=== PATIENT | male | born 1945 | race Caucasian/White ===

== ENCOUNTER 2023-08-31 13:43 | Inpatient (IN) ==
[2023-08-31] MEDS ORDERED: Ondansetron 4 mg VIAL 2 MG/ML 2 ml VIAL IV PRN (15:34)
[2023-08-31] MEDS ORDERED: Senna TAB 8.6 mg TAB PO PRN (15:34)
[2023-08-31] MEDS ORDERED: Al Hydrox/Mg Hydrox/Simet LIQ 30 ML UDC PO PRN (15:34)
[2023-08-31 19:30] LABS: Magnesium 1.7 mg/dL (1.9-2.7)
[2023-08-31 20:04] LABS: TSH Ultra Thyroid Stim Horm 2.38 mcIU/mL (0.34-5.60)
[2023-08-31] MEDS ORDERED: LORazepam 2 mg VIAL 1 ml IV PUSH PRN (21:03)
[2023-08-31] MEDS ORDERED: Lorazepam PYXIS KEY PRN (21:03)
[2023-08-31] MEDS: Heparin 5000 UNITS/ML 1 mL VIAL SUBCUT SCH (22:40)
[2023-09-01] MEDS: Heparin 5000 UNITS/ML 1 mL VIAL SUBCUT SCH ×3 (06:26→21:56)
[2023-09-01] MEDS: Latanoprost 0.005% 2.5 ml BTL LEFT EYE SCH (08:21)
[2023-09-01] MEDS ORDERED: Magnesium Sulfate 2 gm BAG 2 GM/50 ML BAG IVPB ONE (09:22)
[2023-09-01 18:39] LABS: Hematocrit 25.8 % (38-53); Hemoglobin 8.6 g/dL (13.2-16.3)
[2023-09-02] MEDS: Heparin 5000 UNITS/ML 1 mL VIAL SUBCUT SCH ×3 (05:22→21:50)
[2023-09-02 07:08] LABS: Calcium 8.7 mg/dL (8.6-10.3); Creatinine, Serum 1.85 mg/dL (0.67-1.17); Magnesium 2.1 mg/dL (1.9-2.7); Potassium 3.9 mmol/L (3.5-5.0); eGFR CKD-EPI 36.6 (>60)
[2023-09-02 07:33] LABS: Hematocrit 23.8 % (38-53); Hemoglobin 7.9 g/dL (13.2-16.3); Mean Corpuscular Hemoglobin 28.5 pg (27-33); Mean Corpuscular Hgb Conc 33.2 g/dL (31-36); Mean Corpuscular Volume 85.8 fL (80-97); Mean Platelet Volume 9.4 fL (7.5-11.2); Platelet Count 176 10^3/uL (150-450); Red Blood Count 2.78 10^6/uL (4.06-5.63); Red Cell Distribution Width 17.5 % (12-17); White Blood Count 11.9 10^3/uL (3.6-10.2)
[2023-09-02] MEDS ORDERED: Regadenoson 0.4 MG/5 ML SYRINGE ONE (07:50)
[2023-09-02] MEDS ORDERED: Aminophylline 25 MG/ML VIAL ONE (07:50)
[2023-09-02 07:57] LABS: ABS Basophils 0.1 10^3/uL (0.0-0.1); ABS Eosinophils 0.3 10^3/uL (0.0-0.5); ABS Lymphocytes 1.6 10^3/uL (1.0-4.8); ABS Monocytes 8.3 10^3/uL (0.0-1.1); ABS Neutrophils 1.5 10^3/uL (1.5-7.6); ABS Nucleated RBC 0.01 10^3/ul; Eosinophil % 2.9 %; Lymphocyte % 13.1 %; RBC Morphology Normal (Normal)
[2023-09-02] MEDS: Latanoprost 0.005% 2.5 ml BTL LEFT EYE SCH (11:31)
[2023-09-02 14:31] LABS: Urine Appearance Cloudy; Urine Bilirubin Negative (Negative); Urine Blood 1+ (Negative); Urine Color Yellow; Urine Glucose Negative (Negative); Urine Ketones Negative (Negative); Urine Nitrite Negative (Negative); Urine Protein 1+(30 mg/dL) (Negative); Urine Specific Gravity 1.013 (1.002-1.030); Urine Urobilinogen Negative (Negative)
[2023-09-02 14:37] LABS: Urine Bacteria Absent (Absent); Urine Red Blood Cell Trace(0-2/hpf) (Absent); Urine White Blood Cell Trace(0-5/hpf) (Absent)
[2023-09-02] MEDS ORDERED: Iron Sucrose 200 MG in NS 0.9% 100 ml BAG 100 ML IVPB ONE (17:16)
[2023-09-02] MEDS ORDERED: Dextran 70/Hypromellose Tears Eye Drops 15 ml BTL (for Artificials Tears) RIGHT EYE PRN (19:44)
[2023-09-02] MEDS ORDERED: Latanoprost 0.005% 2.5 ml BTL LEFT EYE SCH (21:00)
[2023-09-02 23:20] LABS: Hematocrit 26.2 % (38-53); Hemoglobin 8.7 g/dL (13.2-16.3)
[2023-09-03] MEDS: Heparin 5000 UNITS/ML 1 mL VIAL SUBCUT SCH ×2 (06:02→14:32)
[2023-09-03 07:02] LABS: Hematocrit 27.8 % (38-53); Hemoglobin 9.1 g/dL (13.2-16.3); Mean Corpuscular Hemoglobin 28.2 pg (27-33); Mean Corpuscular Hgb Conc 32.9 g/dL (31-36); Mean Corpuscular Volume 85.6 fL (80-97); Mean Platelet Volume 8.9 fL (7.5-11.2); Platelet Count 174 10^3/uL (150-450); Red Blood Count 3.25 10^6/uL (4.06-5.63)
[2023-09-03 07:38] LABS: ABS Basophils 0.2 10^3/uL (0.0-0.1); ABS Eosinophils 0.3 10^3/uL (0.0-0.5); ABS Lymphocytes 1.8 10^3/uL (1.0-4.8); ABS Monocytes 9.7 10^3/uL (0.0-1.1); ABS Nucleated RBC 0.01 10^3/ul; Eosinophil % 2.2 %; Lymphocyte % 12.7 %; Nucleated Red Blood Cells % 0.1 %/100WBC (0.0-0.8); RBC Morphology Normal (Normal)
[2023-09-03] MEDS ORDERED: Aspirin EC 81 mg TAB.EC (enteric coated) PO SCH (09:00)
[2023-09-03] MEDS ORDERED: Ferric Gluconate IV 250 MG in NS 0.9% 100 ml BAG 200 ML IVPB SCH (11:00)
[2023-09-03] MEDS ORDERED: Alteplase (CATHFLO) 2 MG VIAL IV ONE (13:15)
[2023-09-03 13:59] LABS: Calcium 8.6 mg/dL (8.6-10.3); Creatinine, Serum 1.65 mg/dL (0.67-1.17); Potassium 4.4 mmol/L (3.5-5.0)
[2023-09-03 15:45] VITALS: BP 111/57
== END 2023-09-03 16:15 | disposition home or self-care (01) | DRG 948 ==
LOC: CHOA 13:43 → MEDTELE 18:06 → SUATTDRO 18:06
PROVIDERS: ADMIT Internal Medicine Hematology & Oncology; ATTEND Hospitalist